=== PATIENT | female | born 1995 | race Caucasian/White ===

== ENCOUNTER 2017-05-15 23:16 | Emergency (ER) | payer SELFPAY ==
[~2017-05-15] VITALS: Ht 165.1 cm; Wt 52.3 kg
[~2017-05-15 23:16] MED LIST: ALBUTEROL1.25 MG/3 IH; CEPHALEXIN500 M1 PO; FLOVENT 110MCG7.9 GM IH; PREDNISONE20 MG PO; PROAIR HFA0.09 MG/AC; PROAIR HFA0.09 MG/AC INH; TUSS PO; ZITHROMAX Z PA250 MG PO
[2017-05-15 23:19] VITALS: TEMP 98.4
[2017-05-16] MEDS ORDERED: PULMICORT180 MCG/Ac IH (01:55)
[2017-05-16] MEDS ORDERED: PREDNISONE20 MG PO (01:55)
[2017-05-16] MEDS ORDERED: ALLEGRA 60MG TA60 MG PO (01:55)
[2017-05-16 02:30] VITALS: BP 112/75; PULSE 126
== END 2017-05-16 02:32 | disposition home or self-care (01) ==
LOC: COL.ER 23:16
DX: J45.901 Unspecified asthma with (acute) exacerbation (principal)
CPT/HCPCS: J7512

== ENCOUNTER 2017-06-14 23:31 | Emergency (ER) | payer OTHER ==
[~2017-06-14] VITALS: Ht 165.1 cm; Wt 54.5 kg
[~2017-06-14 23:31] MED LIST changes: +ALLEGRA 60MG TA60 MG PO; +PULMICORT180 MCG/Ac IH
[2017-06-14 23:34] VITALS: TEMP 98.9
[2017-06-15] MEDS ORDERED: IPRATROPIUM BROM3 M1 IH (00:59)
[2017-06-15] MEDS ORDERED: PREDNISONE20 MG PO (00:59)
[2017-06-15] MEDS ORDERED: ZITHROMAX Z PA250 MG PO (00:59)
[2017-06-15 01:33] VITALS: BP 107/76; PULSE 127
== END 2017-06-15 01:39 | disposition home or self-care (01) ==
LOC: COL.ER 23:31
DX: J45.909 Unspecified asthma, uncomplicated (principal)
CPT/HCPCS: J1100

== ENCOUNTER 2018-03-28 21:16 | Emergency (ER) | payer SELFPAY ==
[~2018-03-28] VITALS: Ht 165.1 cm; Wt 54.5 kg
[~2018-03-28 21:16] MED LIST changes: +IPRATROPIUM BROM3 M1 IH
[2018-03-28 21:29] VITALS: TEMP 98.4
[2018-03-28] MEDS ORDERED: SINGULAIR 110 MG/TAB PO (21:52)
[2018-03-28] MEDS ORDERED: PROAIR HFA0.09 MG/AC IH (21:53)
[2018-03-29] MEDS ORDERED: PROAIR HFA0.09 MG/AC IH (01:14)
[2018-03-29] MEDS ORDERED: ALBUTEROL0.83 MG/ML IH (01:14)
[2018-03-29] MEDS ORDERED: PREDNISONE10 MG PO (01:14)
[2018-03-29 01:24] VITALS: BP 111/72; PULSE 111
== END 2018-03-29 01:24 | disposition home or self-care (01) ==
LOC: COL.ER 21:16
DX: J45.901 Unspecified asthma with (acute) exacerbation (principal)
CPT/HCPCS: J7512

== ENCOUNTER 2018-06-19 16:10 | Emergency (ER) | payer SELFPAY ==
[~2018-06-19] VITALS: Ht 165.1 cm; Wt 52.3 kg
[~2018-06-19 16:10] MED LIST changes: +ALBUTEROL0.83 MG/ML IH; +MEDROL 4MG DOSPA4 MG PO; +PREDNISONE10 MG PO; +PROAIR HFA0.09 MG/AC IH; +SINGULAIR 110 MG/TAB PO
[2018-06-19 16:13] VITALS: TEMP 98.5
[2018-06-19 17:47] LABS: COLLECTION METHOD CLEAN CATCH
[2018-06-19 18:01] LABS: MUCOUS Present /lpf; PH 7 (5-8); SQUAMOUS EPITHELIAL None Seen /hpf; URINE APPEARANCE Clear; URINE BACTERIA None Seen /hpf; URINE BILIRUBIN Negative (NEGATIVE); URINE BLOOD Negative (NEGATIVE); URINE COLOR Yellow; URINE GLUCOSE Negative (NEGATIVE); URINE KETONE Negative (NEGATIVE); URINE LEUKOCYTE ESTERASE Negative (NEGATIVE); URINE NITRATE Negative (NEGATIVE); URINE PROTEIN(semi-quant) Negative (NEGATIVE); URINE RBC 0-2 /hpf; URINE UROBILINOGEN Negative (NEGATIVE)
[2018-06-19] MEDS ORDERED: FLOVENT 110MCG7.9 GM IH (20:23)
[2018-06-19] MEDS ORDERED: PREDNISONE10 MG PO (20:23)
[2018-06-19 21:35] VITALS: BP 113/71; PULSE 103
== END 2018-06-19 21:35 | disposition home or self-care (01) ==
LOC: COL.ER 16:10
PROVIDERS: Emergency Medicine
DX: J45.901 Unspecified asthma with (acute) exacerbation (principal)
CPT/HCPCS: G0463; J7512

== ENCOUNTER 2018-06-20 10:51 | Emergency (ER) | payer SELFPAY ==
[~2018-06-20] VITALS: Ht 165.1 cm; Wt 52.3 kg
[2018-06-20 12:03] LABS: BASO # 0.1 (0.0-0.2); BASO % 0.7 % (0.0-2.0); EOS # 0.2 (0.0-0.7); EOS % 1.5 % (0-4.0); GRAN # 5.8 (1.4-6.5); GRAN % 57.1 % (42.2-75.2); HEMATOCRIT 39.6 % (37.0-47.0); HEMOGLOBIN 13.4 g/dl (12.5-16.0); LYMPH # 3.4 (1.2-3.4); LYMPH % 33.5 % (20.0-51.0); MEAN CELL VOLUME 92 fl (80.0-100.0); MEAN CORPUSCULAR HEMOGLOBIN 31 pg (27.0-31.0); MEAN CORPUSCULAR HGB CONC 34 g/dl (33.0-37.0); MEAN PLATELET VOLUME 8.8 fl (7.4-10.4); MONO # 0.7 (0.1-0.6); PLATELET COUNT 309 K/mm3 (130-400); RED BLOOD COUNT 4.33 M/mm3 (4.10-5.30); REDCELL DISTRIBUTION WIDTH-CV 12.7 % (11.5-14.5)
[2018-06-20 12:19] LABS: ALANINE AMINOTRANSFERASE 21 U/L (9-52); ALBUMIN 4.3 gm/dL (3.5-5.0); ALKALINE PHOSPHATASE 59 U/L (50-136); ANION GAP 7 mmol/L (7-16); AST,SGOT 24 U/L (15-37); BILIRUBIN,TOTAL < 0.1 mg/dL (0.0-1.0); BLOOD UREA NITROGEN 10 mg/dL (7-17); CALCIUM 9.4 mg/dL (8.4-10.2); CARBON DIOXIDE 27 mmol/L (22-30); CHLORIDE 106 mmol/L (98-107); CREATININE, serum 0.62 mg/dL (0.52-1.25); GLUCOSE 87 mg/dL (74-106); POTASSIUM 3.8 mmol/L (3.4-5.0); SODIUM 141 mmol/L (137-145); TOTAL PROTEIN 7.4 gm/dL (6.4-8.2)
[2018-06-20 15:10] VITALS: BP 116/75; PULSE 90; TEMP 98.9
== END 2018-06-20 15:10 | disposition home or self-care (01) ==
LOC: COL.ER 10:51 → MEDICAL 12:46
PROVIDERS: Nurse Practitioner
DX: J45.901 Unspecified asthma with (acute) exacerbation (principal); Z79.51 Long term (current) use of inhaled steroids
CPT/HCPCS: J2930; J3475

== ENCOUNTER 2021-01-29 02:28 | Emergency (ER) | payer SELFPAY ==
[~2021-01-29] VITALS: Ht 165.1 cm; Wt 54.5 kg
[2021-01-29 03:41] LABS: BASO # 0.1 (0.0-0.2); BASO % 0.5 % (0.0-2.0); EOS # 0.4 (0.0-0.7); EOS % 3.7 % (0-4.0); GRAN # 7.9 (1.4-6.5); GRAN % 75.3 % (42.2-75.2); HEMATOCRIT 37.9 % (37.0-47.0); HEMOGLOBIN 12.5 g/dl (12.5-16.0); LYMPH # 1.4 (1.2-3.4); LYMPH % 13.3 % (20.0-51.0); MEAN CELL VOLUME 95 fl (80.0-100.0); MEAN CORPUSCULAR HEMOGLOBIN 31 pg (27.0-31.0); MEAN CORPUSCULAR HGB CONC 33 g/dl (33.0-37.0); MEAN PLATELET VOLUME 8.8 fl (7.4-10.4); MONO # 0.7 (0.1-0.6); MONO % 6.9 % (1.7-9.3); PLATELET COUNT 295 K/mm3 (130-400); REDCELL DISTRIBUTION WIDTH-CV 12.9 % (11.5-14.5)
[2021-01-29 03:51] LABS: ALANINE AMINOTRANSFERASE 15 U/L (4-34); ALBUMIN 4.5 gm/dL (3.5-5.0); ALKALINE PHOSPHATASE 47 U/L (50-136); ANION GAP 11 mmol/L (7-16); AST,SGOT 33 U/L (15-37); BILIRUBIN,TOTAL < 0.1 mg/dL (0.0-1.0); BLOOD UREA NITROGEN 5 mg/dL (7-17); CALCIUM 7.9 mg/dL (8.4-10.2); CARBON DIOXIDE 25 mmol/L (22-30); CHLORIDE 108 mmol/L (98-107); CREATININE, serum 0.63 (0.52-1.25); GLUCOSE 122 mg/dL (74-106); POTASSIUM 3.4 mmol/L (3.4-5.0); SODIUM 144 mmol/L (137-145); TOTAL PROTEIN 7.5 gm/dL (6.4-8.2)
[2021-01-29] MEDS ORDERED: RT ALBUTER2.5 MG/0.5 IH (05:02)
[2021-01-29] MEDS ORDERED: PREDNISONE10 MG PO (05:02)
[2021-01-29 05:18] VITALS: BP 123/73; PULSE 144; TEMP 98.6
== END 2021-01-29 05:19 | disposition home or self-care (01) ==
LOC: COL.ER 02:28
PROVIDERS: Personal Emergency Response Attendant
DX: J45.901 Unspecified asthma with (acute) exacerbation (principal); Z79.899 Other long term (current) drug therapy
CPT/HCPCS: J2930; J3475; J7030; J7512

== ENCOUNTER 2021-10-15 17:17 | Emergency (ER) | payer SELFPAY ==
[~2021-10-15] VITALS: Ht 165.1 cm; Wt 54.5 kg
[~2021-10-15 17:17] MED LIST changes: +RT ALBUTER2.5 MG/0.5 IH
[2021-10-15 20:00] VITALS: BP 118/83; PULSE 111
[2021-10-15] MEDS ORDERED: CLEVER CHOICE1 EA20 MC (20:01)
[2021-10-15] MEDS ORDERED: PREDNISONE20 MG PO (20:01)
[2021-10-15] MEDS ORDERED: PROAIR HFA0.09 MG/AC IH (20:01)
== END 2021-10-15 20:15 | disposition home or self-care (01) ==
LOC: COL.ER 17:17
DX: J45.901 Unspecified asthma with (acute) exacerbation (principal); Z28.310 Unvaccinated for COVID-19
CPT/HCPCS: J3475; J7120